=== PATIENT | male | born 1995 | race Caucasian/White ===

== ENCOUNTER 2020-06-05 23:38 | Inpatient (IN) ==
[2020-06-06] MEDS ORDERED: SODIUM CHLORIDE 0.9% 1000ML 1,000 ML IV ONE (00:02)
--- NOTE | 2020-06-06 00:08 | Emergency Department Note ---
Impression & Plan Acute appendicitis ED Provider Note Name: DORIAN RAMIREZ Age: 24 Sex: M Arrives Via: Walk-In Informant: Patient ED Provider: Shantanu Beavers MD Chief Complaint: Abdominal pain Impression: Acute Appendicitis Medical Decision Makin yr old male with no PMH arrives with 8 hours of worsening RLQ pain. Quite tender to palpation and CT a/p ordered. Labs returning with elevated WBC consistent with infection. Declines pain meds but given some IV fluids while a waiting CT. CT reveals acute appendicitis without perforation. Covid sent pre- op, and Mefoxin ordered after discussion with Dr Murrieta of Gen Surg. Will go to OR for further management. Stable throughout. Triage/Nursing Notes reviewed by Me Differentials:Appendicitis, testicular torsion, infections, diverticulitis, UTI, obstruction, mesenteric ischemia, aortic pathology, inflammatory bowel disease, renal colic, PUD, pancreatitis, biliary pathology, hernia, volvulus, constipation, as well as other pathologies. Vital Signs: reviewed and remarkable for no significant abnormalities Interventions: saline lock, nss bolus, mefoxin 2g iv Labs:Reviewed and remarkable for wbc elevation Imaging:[facility] Radiologist interpretation reviewed by me: ct a/p iv con acute non perforated appendicitis Consults:Dr Murrieta Gen Surg - will take to OR Plan: Disposition: OR Condition: Good History of Present Illness:24 yr old male arrives for evaluation of abdominal pain. Patient notes gradual onset of RLQ pain over the last 8 hours. 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 Notes increasing fatigue, some nausea, chills. Had normal BM this evening. Does recall some vague epigastric pain initially thus he had taken tums without improvement. No chemical exposures nor heavy lifting. Denies trauma. No fevers, vomiting, chest pain, sob, syncope, headache, neck pain, rashes, bleeding, bruising, leg swelling, calf pain, nor other symptoms. No previous abdominal issues. Nothing makes pain better, movement makes worse. ROS: See above HPI for pertinent positives & negatives. A total of 10 systems reviewed and were otherwise negative. Past Medical History:None Past Surgical History:Dental Family History:Healthy Social History:, no children, no etoh/drugs/tobacco, employed Home Medications:None Allergies:Codeine Vitals:Blood Pressure: 113/68, Pulse 80, RR 20, T 36.3C, O2 97% on RA Physical Exam: GENERAL: Patient is mildly uncomfortable appearing and in mild distress. EYES: No scleral icterus, unremarkable pupils. ENT: Mucous membranes moist, no nasal congestion. NECK: No masses appreciated, nomeningismus, trachea is midline. RESPIRATORY: No dyspnea. Clear to auscultation and equal bilaterally. No wheeze, no rhonchi. CARDIOVASCULAR: Regular rate and rhythm.No murmurs, rubs, gallops appreciated. GASTROINTESTINAL: RLQ TTP otherwise abdomen soft, non-tender, no peritonitis.Bowel sounds positive.No masses appreciated. BACK: No midline tenderness, no CVA tenderness EXTREMITIES: Normal motion all extremities, no cyanosis, no edema. NEUROLOGIC: Alert and oriented, no acute motor or sensory deficits, no focal weakness, cranial nerves grossly intact. SKIN: No rash, no jaundice, no diaphoresis. PSYCH: Appropriate GCS: 15 ED Course: Times/Reassessments: stable, declines pain meds Shantanu Beavers MD Past Med/Surg History Social History Smoking Status: Never smoker Preferred Language: Tajik Feels Safe at Home: Yes Allergies Allergies Allergy/AdvReac Type Severity Reaction Status Date / Time codeine Allergy Unknown Verified 06/06/20 00:02 Home Meds Home Medications Medication Instructions Recorded Confirmed No Known Home Medications 06/05/20 06/05/20 Results & Data (ED) Vital Signs Vital Signs - 24 hr 06/05/20 23:41 06/06/20 00:54 06/06/20 00:57 Temperature 36.3 C L Temperature Source Oral Pulse Rate 80 97 H Pulse Rate [Right Finger] 90 Pulse Rate from SpO2 Sensor Pulse Rhythm Regular Pulse Strength Normal Respiratory Rate 20 20 19 Respiratory Effort / Characteristics Non-Labored Spontaneous Respiratory Depth Normal Blood Pressure 113/68 136/75 Blood Pressure [Right Arm] 136/75 Blood Pressure Mean 83 95 Blood Pressure Mean [Right Arm] 95 Blood Pressure Position Sitting Pulse Oximetry 97 98 Oxygen Delivery Method Room Air Sepsis Recent Fever Within 48 Hours No Sepsis New/Unexplained Change in Mental Status N/A Sepsis Action Taken by Nursing No Action Required 06/06/20 02:16 06/06/20 02:30 06/06/20 03:01 Temperature Temperature Source Pulse Rate 99 H 91 H 96 H Pulse Rate [Right Finger] Pulse Rate from SpO2 Sensor 98 H 91 H 94 H Pulse Rhythm Pulse Strength Respiratory Rate 20 20 14 Respiratory Effort / Characteristics Respiratory Depth Blood Pressure 145/82 H 147/86 H 145/77 H Blood Pressure [Right Arm] Blood Pressure Mean 103 106 99 Blood Pressure Mean [Right Arm] Blood Pressure Position Pulse Oximetry 97 97 98 Oxygen Delivery Method Room Air Sepsis Recent Fever Within 48 Hours Sepsis New/Unexplained Change in Mental Status Sepsis Action Taken by Nursing Laboratory Data Result diagrams: 06/06/20 00:10 06/06/20 00:10 Lab Results 06/06/20 06/06/20 06/06/20 Range/Units 00:10 00:10 00:10 WBC 17.12 H (4.8-10.8) K/uL RBC 5.56 (4.7-6.1) M/uL Hgb 15.7 (14.0-18.0) g/dL POC Hgb (14.0-18.0) g/dl Hct 45.2 (42-52) % POC Hct (42-52) % MCV 81.3 (80-100) fL MCH 28.2 (25-34) pg MCHC 34.7 (32-36) g/dL RDW Std Deviation 38.0 (36.4-46.3) fL RDW Coeff of Lisha 12.8 (11.5-14.5) % Plt Count 244 (130-400) K/uL MPV 9.7 (7.4-10.4) fL Immature Gran % (Auto) 0.3 % Neut % (Auto) 82.1 % Lymph % (Auto) 11.9 % [place] % (Auto) 5.0 % Eos % (Auto) 0.5 % Baso % (Auto) 0.2 % Neut # (Auto) 14.08 H (1.4-6.5) K/uL Lymph # (Auto) 2.03 (1.2-3.4) K/uL [place] # (Auto) 0.85 H (0.11-0.59) K/uL Eos # (Auto) 0.08 (0-0.5) K/uL Baso # (Auto) 0.03 (0-0.2) K/uL Immature Gran # (Auto) 0.05 H (0.00-0.02) K/uL POC Sodium (135-144) mmol/L Sodium 139 (136-145) mmol/L POC Potassium (3.3-5.0) mmol/L Potassium 3.7 (3.5-5.1) mmol/L POC Chloride (101-112) mmol/L Chloride 107 (98-107) mmol/L Carbon Dioxide 25 (21-32) mmol/L POC Total CO2 (24-31) mmol/L Anion Gap 7.0 (3-11) POC Anion Gap (16-25) mmol/L POC BUN (7-18) mg/dl BUN 16 (7-18) mg/dl Creatinine 0.90 (0.6-1.4) mg/dl POC Creatinine (0.6-1.3) mg/dl Est Cr Clr Drug Dosing 192.7 ml/min Est GFR ( Amer) 137.1 Est GFR (Non-Af Amer) 118.3 BUN/Creatinine Ratio 18.0 (10-20) Glucose 159 H (70-99) mg/dl POC Glucose (other) (70-99) mg/dl Calcium 10.0 (8.5-10.1) mg/dl POC Ioniz Calcium Phan (1.12-1.32) mmol/l Total Bilirubin 1.0 (0.2-1) mg/dl Direct Bilirubin < 0.1 (0-0.2) mg/dl AST 34 (15-37) U/L ALT 73 (12-78) U/L Alkaline Phosphatase 61 (45-117) U/L Total Protein 7.4 (6.4-8.2) gm/dl Albumin 4.3 (3.4-5.0) gm/dl Lipase 101 (73-393) U/L Urine Color Yellow Urine Appearance Cloudy A (Clear) Urine pH >= 9.0 H (4.5-7.5) Ur Specific [place] 1.021 (1.000-1.030) Urine Protein Negative (Negative) Urine Glucose (UA) Negative (Negative) Urine Ketones Negative (Negative) Urine Blood Negative (Negative) Urine Nitrite Negative (Negative) Urine Bilirubin Negative (Negative) Urine Urobilinogen Negative (Negative) Ur Leukocyte Esterase Negative (Negative) Urine WBC (Auto) 1-5 (0-5) /hpf Urine RBC (Auto) 0-4 (0-4) /hpf U Hyaline Cast (Auto) 1-5 (0-5) /lpf U Epithel Cells (Auto) 5-10 H (0-5) /lpf Urine Bacteria (Auto) Negative (Negative) COVID-19 Eval Order SARS-CoV-2 (PCR) (Negative) Influenza Type A (PCR) (Neg) Influenza Type B (PCR) (Neg) RSV (RT-PCR) (Neg) 06/06/20 06/06/20 06/06/20 Range/Units 00:30 01:54 01:54 WBC (4.8-10.8) K/uL RBC (4.7-6.1) M/uL Hgb (14.0-18.0) g/dL POC Hgb 14.6 (14.0-18.0) g/dl Hct (42-52) % POC Hct 43 (42-52) % MCV (80-100) fL MCH (25-34) pg MCHC (32-36) g/dL RDW Std Deviation (36.4-46.3) fL RDW Coeff of Lisha (11.5-14.5) % Plt Count (130-400) K/uL MPV (7.4-10.4) fL Immature Gran % (Auto) % Neut % (Auto) % Lymph % (Auto) % [place] % (Auto) % Eos % (Auto) % Baso % (Auto) % Neut # (Auto) (1.4-6.5) K/uL Lymph # (Auto) (1.2-3.4) K/uL [place] # (Auto) (0.11-0.59) K/uL Eos # (Auto) (0-0.5) K/uL Baso # (Auto) (0-0.2) K/uL Immature Gran # (Auto) (0.00-0.02) K/uL POC Sodium 139 (135-144) mmol/L Sodium (136-145) mmol/L POC Potassium 3.8 (3.3-5.0) mmol/L Potassium (3.5-5.1) mmol/L POC Chloride 104 (101-112) mmol/L Chloride (98-107) mmol/L Carbon Dioxide (21-32) mmol/L POC Total CO2 27 (24-31) mmol/L Anion Gap (3-11) POC Anion Gap 13.0 L (16-25) mmol/L POC BUN 17 (7-18) mg/dl BUN (7-18) mg/dl Creatinine (0.6-1.4) mg/dl POC Creatinine 0.9 (0.6-1.3) mg/dl Est Cr Clr Drug Dosing ml/min Est GFR ( Amer) Est GFR (Non-Af Amer) BUN/Creatinine Ratio (10-20) Glucose (70-99) mg/dl POC Glucose (other) 158 H (70-99) mg/dl Calcium (8.5-10.1) mg/dl POC Ioniz Calcium Phan 1.21 (1.12-1.32) mmol/l Total Bilirubin (0.2-1) mg/dl Direct Bilirubin (0-0.2) mg/dl AST (15-37) U/L ALT (12-78) U/L Alkaline Phosphatase (45-117) U/L Total Protein (6.4-8.2) gm/dl Albumin (3.4-5.0) gm/dl Lipase (73-393) U/L Urine Color Urine Appearance (Clear) Urine pH (4.5-7.5) Ur Specific [place] (1.000-1.030) Urine Protein (Negative) Urine Glucose (UA) (Negative) Urine Ketones (Negative) Urine Blood (Negative) Urine Nitrite (Negative) Urine Bilirubin (Negative) Urine Urobilinogen (Negative) Ur Leukocyte Esterase (Negative) Urine WBC (Auto) (0-5) /hpf Urine RBC (Auto) (0-4) /hpf U Hyaline Cast (Auto) (0-5) /lpf U Epithel Cells (Auto) (0-5) /lpf Urine Bacteria (Auto) (Negative) COVID-19 Eval Order [facility]FluRsv at [facility] SARS-CoV-2 (PCR) NEGATIVE (Negative) Influenza Type A (PCR) Negative (Neg) Influenza Type B (PCR) Negative (Neg) RSV (RT-PCR) Negative (Neg) Administered Medications Discontinued Medications Sodium Chloride (Nss 1000ml) 1,000 mls @ 999 mls/hr IV .[id number] ONE Stop: 06/06/20 01:02 Last Infusion: 06/06/20 01:24 Dose: 0 mls/hr Documented by: [id number] Admin: 06/06/20 00:24 Dose: 999 mls/hr Documented by: [id number] Cefoxitin Sodium (Mefoxin) 2,000 mg in 60 mls @ 100 mls/hr IV NOW STA Stop: 06/06/20 02:15 Last Admin: 06/06/20 02:16 Dose: 100 mls/hr Documented by: [id number] Ioversol (Optiray 350 500ml) 125 ml IV ONCE ONE Stop: 06/06/20 01:02 Last Admin: 06/06/20 01:01 Dose: 109 ml Documented by: [id number] Discharge Plan Visit Data Chief Complaint: Abdominal Pain Stated Complaint: SHARP PAIN ON THE RIGHT SIDE ED Provider: Shantanu Beavers Discharge Problem: Acute appendicitis Patient Disposition: Admitted As Inpatient Discharge Instructions Interventions: ED Discharge Assessment Last Done: 06/06/20 03:32 Forms Stand Alone Forms: iTOK Prescriptions Prescriptions: No Action No Known Home Medications RF: 0 Referrals Referrals: PCP,NO [Primary Care Provider] - Discharge Problem: Acute appendicitis Qualifiers: Acute appendicitis type: with localized peritonitis Appendicitis gangrene presence: without gangrene Appendicitis perforation presence: without perforation Appendicitis abscess presence: without abscess Qualified Code(s): K35.30 - Acute appendicitis with localized peritonitis, without perforation or gangrene
[2020-06-06 00:23] LABS: Basophils # (auto) 0.03 K/uL (0-0.2); Basophils % (auto) 0.2 %; Eosinophils # (auto) 0.08 K/uL (0-0.5); Eosinophils % (auto) 0.5 %; Hematocrit (blood only) 45.2 % (42-52); Hemoglobin 15.7 g/dL (14.0-18.0); Immature Granulocytes # (auto) 0.05 K/uL (0.00-0.02); Immature Granulocytes % (auto) 0.3 %; Lymphocytes # (auto) 2.03 K/uL (1.2-3.4); Lymphocytes % (auto) 11.9 %; Mean Corpuscular Hemoglobin 28.2 pg (25-34); Mean Corpuscular Hgb Conc 34.7 g/dL (32-36); Mean Corpuscular Volume 81.3 fL (80-100); Mean Platelet Volume 9.7 fL (7.4-10.4); Monocytes # (auto) 0.85 K/uL (0.11-0.59); Neutrophils # (auto) 14.08 K/uL (1.4-6.5); Neutrophils % (auto) 82.1 %; Platelet Count 244 K/uL (130-400); RDW Coefficient of Variation 12.8 % (11.5-14.5); Red Blood Count 5.56 M/uL (4.7-6.1); White Blood Count 17.12 K/uL (4.8-10.8)
[2020-06-06 00:39] LABS: Appearance Urine Cloudy (Clear); Bacteria Urine Automated Negative (Negative); Bilirubin Urine Negative (Negative); Blood Urine Negative (Negative); Color Urine Yellow; Glucose Urine UA Negative (Negative); Ketones Urine Negative (Negative); Leukocyte Esterase Urine Negative (Negative); Nitrite Urine Negative (Negative); Protein Urine Negative (Negative); RBC Urine Automated 0-4 /hpf (0-4); Specific Gravity Urine 1.021 (1.000-1.030); Urobilinogen Urine Negative (Negative); pH Urine >= 9.0 (4.5-7.5)
[2020-06-06 00:42] LABS: Alanine Aminotransferase 73 U/L (12-78); Albumin Level 4.3 gm/dl (3.4-5.0); Aspartate Aminotransferase 34 U/L (15-37); Bilirubin Direct < 0.1 mg/dl (0-0.2); Blood Urea Nitrogen 16 mg/dl (7-18); Carbon Dioxide 25 mmol/L (21-32); Chloride 107 mmol/L (98-107); Creatinine Clr Calc Pharmacy 192.7 ml/min; Est GFR (African American) 137.1; Est GFR (Non-African American) 118.3; Glucose 159 mg/dl (70-99); Lipase 101 U/L (73-393); Potassium 3.7 mmol/L (3.5-5.1); Sodium 139 mmol/L (136-145)
[2020-06-06 00:45] LABS: Alkaline Phosphatase 61 U/L (45-117); Total Protein 7.4 gm/dl (6.4-8.2)
[2020-06-06 00:48] LABS: iSTAT Creatinine 0.9 mg/dl (0.6-1.3); iSTAT Hemoglobin 14.6 g/dl (14.0-18.0); iSTAT Ionized Calcium 1.21 mmol/l (1.12-1.32); iSTAT Potassium 3.8 mmol/L (3.3-5.0)
[2020-06-06] MEDS ORDERED: OPTIRAY 350 500ml IV ONE (01:01)
[2020-06-06] MEDS ORDERED: cefOXitin 2,000 MG/60 ML BAG IV STA (01:40)
--- NOTE | 2020-06-06 02:21 | History & Physical Bridge Note ---
Date of Service June 06, 2020 History & Physical Bridge Note I have examined the patient, reviewed the History & Physical and in the interval since the performance of the History & Physical I have noted the following changes of clinical significance: no changes noted
--- NOTE | 2020-06-06 02:21 | Surgery Consultation ---
Date of Consultation June 06, 2020 Assessment & Plan (1) Acute appendicitis: pt is a 24 year-old male who presents to ER with 8 hours history RLQ pain, IMP: acute appendicitis, Plan, I recommend to do laparoscopic appendectomy, possible open, D/W benefits, risks and alternatives of the surgery, the risks - infection, bleeding, abscess, injury bowel, incisional hernia, pt and his understood, they agree with the surgery, I answered all questions, pre-op antibiotic, Present on Admission?: Yes History of Present Illness History of Present Illness CC: abdominal pain, History of Present Illness: 24 yr old male arrives for evaluation of abdominal pain. Patient notes gradual onset of RLQ pain over the last 8 hours. 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 Notes increasing fatigue, some nausea, chills. Had normal BM this evening. Does recall some vague epigastric pain initially thus he had taken tums without improvement. No chemical exposures nor heavy lifting. Denies trauma. No fevers, vomiting, chest pain, sob, syncope, headache, neck pain, rashes, bleeding, bruising, leg swelling, calf pain, nor other symptoms. No previous abdominal issues. Nothing makes pain better, movement makes worse. I ( Clint Murrieta mD ) got a call for consult acute appendicitis, I reviewed pt's H/P, labs, CT with pt and hiswife, pt is still have RLQ pain, ROS: See above HPI for pertinent positives & negatives. A total of 10 systems reviewed and were otherwise negative. Past Medical History: None Past Surgical History: Dental Family History: Healthy Social History: , no children, no etoh/drugs/tobacco, employed Home Medications: None Allergies: Codeine Vitals: Blood Pressure: 113/68, Pulse 80, RR 20, T 36.3C, O2 97% on RA Allergies Allergy/AdvReac Type Severity Reaction Status Date / Time codeine Allergy Unknown Verified 06/06/20 00:02 Home Medications Medication Instructions Recorded Confirmed Type No Known Home Medications 06/05/20 06/05/20 History Patient History Social History Smoking Status: Never smoker Preferred Language: Senegalese Feels Safe at Home: Yes Review of Systems Review of Systems: All systems reviewed & are unremarkable except as noted in HPI & below Constitutional: as per Subjective / HPI obesity Eyes: as per Subjective / HPI Ear, Nose, Mouth, Throat: as per Subjective / HPI Respiratory: as per Subjective / HPI Cardiovascular: as per Subjective / HPI Gastrointestinal: as per Subjective / HPI Genitourinary: + as per Subjective / HPI Musculoskeletal: as per Subjective / HPI Integumentary: as per Subjective / HPI Neurologic: as per Subjective / HPI Psychiatric: as per Subjective / HPI Endocrine: as per Subjective / HPI Hematologic / Lymphatic: as per Subjective / HPI Allergy / Immunological: as per Subjective / HPI Physical Exam Constitutional: WD/WN, vitals as above well developed and well nourished Eyes: PERRL, conjunctivae normal, anicteric sclerae ENMT: external ear and nose normal, oropharynx normal Neck: trachea midline, no thyromegaly Respiratory: normal respiratory effort, lungs clear to auscultation Cardiovascular: RRR, no murmur, no edema Rate/Rhythm: regular rate and regular rhythm Gastrointestinal (Abdomen): Percussion/Palpation: abdomen soft tenderness at RLQ, no rebound pain, no distend, BS + Musculoskeletal: no cyanosis or clubbing, extremities motor strength 5/5 Skin: no rashes, warm and dry Neurologic: awake Psychiatric: Orientation: alert and oriented x 3 Results & Data ([facility]) Vital Signs (Past 12 Hours) Vital Signs Temp Pulse Pulse Resp BP BP Pulse Ox 06/06/20 00:57 90 19 136/75 98 06/05/20 23:41 36.3 C L 80 20 113/68 97 Laboratory Results Abnormal lab results 06/06/20 06/06/20 06/06/20 Range/Units 00:10 00:10 00:10 WBC 17.12 H (4.8-10.8) K/uL Neut # (Auto) 14.08 H (1.4-6.5) K/uL [place] # (Auto) 0.85 H (0.11-0.59) K/uL Immature Gran # (Auto) 0.05 H (0.00-0.02) K/uL POC Anion Gap (16-25) mmol/L Glucose 159 H (70-99) mg/dl POC Glucose (other) (70-99) mg/dl Urine Appearance Cloudy A (Clear) Urine pH >= 9.0 H (4.5-7.5) U Epithel Cells (Auto) 5-10 H (0-5) /lpf 06/06/20 Range/Units 00:30 WBC (4.8-10.8) K/uL Neut # (Auto) (1.4-6.5) K/uL [place] # (Auto) (0.11-0.59) K/uL Immature Gran # (Auto) (0.00-0.02) K/uL POC Anion Gap 13.0 L (16-25) mmol/L Glucose (70-99) mg/dl POC Glucose (other) 158 H (70-99) mg/dl Urine Appearance (Clear) Urine pH (4.5-7.5) U Epithel Cells (Auto) (0-5) /lpf Diagnostic Findings CT scan- acute appendicitis, (1) Acute appendicitis Acute appendicitis type: with localized peritonitis Appendicitis abscess presence: without abscess Appendicitis gangrene presence: without gangrene Appendicitis perforation presence: without perforation Qualified Code(s): K35.30 - Acute appendicitis with localized peritonitis, without perforation or gangrene
[2020-06-06 02:40] LABS: Influenza A virus by PCR Negative (Neg); Influenza B virus by PCR Negative (Neg); RSV by PCR Negative (Neg); SARS CoV2 RNA(COVID-19) InHosp NEGATIVE (Negative)
[2020-06-06] MEDS ORDERED: LIDOCAINE HCL 1% 20 ML VIAL ONE (02:45)
[2020-06-06] MEDS ORDERED: BUPIVACAINE 0.5 % 5 MG/1 ML MPF 30ML VIAL ONE (02:45)
[2020-06-06] MEDS ORDERED: BACITRACIN OINT 15 GM TUBE ONE (02:45)
[2020-06-06] MEDS ORDERED: MIDAZOLAM HCL 1 MG/ML 2ML VIAL ONE (03:39)
[2020-06-06] MEDS ORDERED: fentaNYL citrate 100 MCG/2 ML VIAL ONE (03:40)
[2020-06-06] MEDS ORDERED: PROPOFOL IV EMULSION 10 MG/ML 20 ML VIAL IV ONE ×3 (03:40→03:45)
--- NOTE | 2020-06-06 03:51 | Anesthesiology Consultation ---
Date of Service June 06, 2020 Assessment & Plan Chart Review Chart Review: Acceptable Risk for Surgery Consults Requested none Proposed Anesthesia Risk / Benefits Reviewed With: PT / POA / Parent / Guardian, Accepts Plan and Informed Consent Obtained History Surgery Operation Date: 06/06/20 03:30 Proposed Procedures p Laparoscopic Appendectomy - Clint Murrieta MD Height/Weight Height: 6 ft 3 in Weight: 144.7 kg Allergies Allergy/AdvReac Type Severity Reaction Status Date / Time codeine Allergy Unknown Verified 06/06/20 00:02 Medications Home Medications Medication Instructions Recorded Confirmed Last Taken No Known Home Medications 06/05/20 06/05/20 Unknown NPO Date Last Intake of Fluids: 06/06/20 Time Last Intake of Fluids: 20:30 Date Last Intake of Solids: 06/06/20 Time Last Intake of Solids: 19:30 Social History Smoking Status: Never smoker Physical Exam Vital Signs Last Vital Signs Temp 36.3 C L 06/05/20 23:41 Pulse 96 H 06/06/20 03:01 Resp 14 06/06/20 03:01 BP 145/77 H 06/06/20 03:01 Pulse Ox 98 06/06/20 03:01 Testing Laboratory Results 06/06/20 00:10 06/06/20 00:10 Urine Color Yellow 06/06/20 00:10 Urine Appearance Cloudy (Clear) A 06/06/20 00:10 Urine pH >= 9.0 (4.5-7.5) H 06/06/20 00:10 Ur Specific [place] 1.021 (1.000-1.030) 06/06/20 00:10 Urine Protein Negative (Negative) 06/06/20 00:10 Urine Glucose (UA) Negative (Negative) 06/06/20 00:10 Urine Ketones Negative (Negative) 06/06/20 00:10 Urine Nitrite Negative (Negative) 06/06/20 00:10 Ur Leukocyte Esterase Negative (Negative) 06/06/20 00:10 Urine WBC (Auto) 1-5 /hpf (0-5) 06/06/20 00:10 Urine RBC (Auto) 0-4 /hpf (0-4) 06/06/20 00:10 U Hyaline Cast (Auto) 1-5 /lpf (0-5) 06/06/20 00:10 U Epithel Cells (Auto) 5-10 /lpf (0-5) H 06/06/20 00:10 Urine Bacteria (Auto) Negative (Negative) 06/06/20 00:10 06/06/20 00:30 POC Glucose (other) 158 H
[2020-06-06] MEDS ORDERED: ePHEDrine sulfate 50 MG/ML AMP IV PRN ×3 (03:52→04:47)
[2020-06-06] MEDS ORDERED: HYDROmorphone INJ 2 MG/ML SYR/VIAL IV PRN ×3 (03:52→04:47)
[2020-06-06] MEDS ORDERED: fentaNYL citrate 100 MCG/2 ML VIAL IV PRN ×3 (03:52→04:47)
[2020-06-06] MEDS ORDERED: ATROPINE SULFATE 0.1 MG/ML 10ML SYR IV PRN ×3 (03:52→04:44)
[2020-06-06] MEDS ORDERED: ONDANSETRON INJ 2 MG/ML 2 ML VIAL IV PRN ×4 (03:52→09:14)
[2020-06-06] MEDS ORDERED: PROMETHAZINE HCL 12.5 MG in SODIUM CHLORIDE 0.9% 50 ML IV PRN ×3 (03:52→04:43)
[2020-06-06] MEDS ORDERED: METOCLOPRAMIDE HCL INJ 5 MG/ML 2 ML VIAL IV PRN ×3 (03:52→04:43)
[2020-06-06] MEDS ORDERED: ROCURONIUM BROMIDE 10 MG/ML 5 ML VIAL IV ONE (04:18)
[2020-06-06] MEDS ORDERED: SUCCINYLCHOLINE CHLORIDE 20 MG/ML 10 ML VIAL IV ONE (04:19)
[2020-06-06] MEDS ORDERED: ONDANSETRON INJ 2 MG/ML 2 ML VIAL ONE ×2 (04:21→04:26)
[2020-06-06] MEDS ORDERED: NEOSTIGMINE METHYLSULFATE 5 MG/5 ML SYR ONE (04:21)
[2020-06-06] MEDS ORDERED: GLYCOPYRROLATE 0.2 MG/ML VIAL ONE (04:21)
--- NOTE | 2020-06-06 04:57 | Post Operative Brief Note ---
Immediate Post Op Note v1 Date of Surgery June 06, 2020 Pre & Post Diagnosis Operation Date: 06/06/20 03:30 Pre-Op Diagnosis: Acute appendicitis Post-Op Diagnosis: Acute appendicitis I identified the patient and participated in the time-out.: Yes Procedure Operation Date: 06/06/20 03:30 Actual Procedures p Laparoscopic Appendectomy - Clint Murrieta MD Surgeon Clint Murrieta MD Home Care Nurse surgical endoscopist Estimated Blood Loss 5 Findings Consistent with Post-Op Diagnosis acute appendicitis Fluids 1000ml Specimens appendix Anesthesia Type General Complications none Disposition Accompanied Patient To Recovery: Yes Disposition: Recovery Room Overlapping Procedure I was immediately available: during the entire case.
[2020-06-06] MEDS ORDERED: oxyCODONE/ACETAMINOPHEN 5mg/325mg TAB PO PRN (06:13)
[2020-06-06] MEDS ORDERED: HYDROmorphone INJ 1 MG/ML SYRINGE IV PRN (06:13)
[2020-06-06] MEDS: LACTATED RINGER'S 1,000 ML IV SCH ×2 (06:33→19:42)
--- NOTE | 2020-06-06 06:52 | Anesthesiology Progress Note ---
Date of Service June 06, 2020 Anesthesia Post Procedure Vital Signs Vital Signs: Temp Pulse Pulse Resp BP BP BP 06/06/20 06:35 36.8 C 88 18 137/75 06/06/20 06:00 36.4 C L 67 15 159/80 H 06/06/20 05:39 36.7 C 72 18 147/71 H 06/06/20 05:23 70 16 147/73 H 06/06/20 05:09 37.1 C 77 16 161/74 H 06/06/20 03:01 96 H 14 145/77 H 06/06/20 02:30 91 H 20 147/86 H 06/06/20 02:16 99 H 20 145/82 H 06/06/20 00:57 90 19 136/75 06/06/20 00:54 97 H 20 136/75 06/05/20 23:41 36.3 C L 80 20 113/68 Pulse Ox 06/06/20 06:35 95 06/06/20 06:00 93 06/06/20 05:39 92 06/06/20 05:23 92 06/06/20 05:09 92 06/06/20 03:01 98 06/06/20 02:30 97 06/06/20 02:16 97 06/06/20 00:57 98 06/06/20 00:54 06/05/20 23:41 97 Pain Intensity Right Lower Abdomen: Pain Intensity: 6 Abdomen: Pain Intensity: 2 Transfer of Care Handoff Completed per policy Notes Mental Status: alert / awake / arousable and participated in evaluation Patient Amnestic to Procedure: Yes Nausea / Vomiting: adequately controlled Pain: adequately controlled Airway Patency, RR, SpO2: stable & adequate BP & HR: stable & adequate Hydration State: stable & adequate Anesthetic Complications: no major complications apparent
[2020-06-06 08:00] LABS: Basophils # (auto) 0.01 K/uL (0-0.2); Basophils % (auto) 0.1 %; Hematocrit (blood only) 43.7 % (42-52); Immature Granulocytes # (auto) 0.06 K/uL (0.00-0.02); Immature Granulocytes % (auto) 0.3 %; Lymphocytes # (auto) 1.19 K/uL (1.2-3.4); Lymphocytes % (auto) 6.2 %; Mean Corpuscular Hemoglobin 28.2 pg (25-34); Mean Corpuscular Hgb Conc 34.3 g/dL (32-36); Mean Corpuscular Volume 82.1 fL (80-100); Mean Platelet Volume 10.1 fL (7.4-10.4); Monocytes # (auto) 1.18 K/uL (0.11-0.59); Monocytes % (auto) 6.2 %; Neutrophils # (auto) 16.69 K/uL (1.4-6.5); Neutrophils % (auto) 87.2 %; Platelet Count 236 K/uL (130-400); RDW Coefficient of Variation 12.8 % (11.5-14.5); RDW Standard Deviation 38.5 fL (36.4-46.3); Red Blood Count 5.32 M/uL (4.7-6.1); White Blood Count 19.13 K/uL (4.8-10.8)
--- NOTE | 2020-06-06 08:17 | CT Scan Report ---
CT abd pelvis IV con only CLINICAL HISTORY: Right lower quadrant abdominal pain COMPARISON STUDY: None. TECHNIQUE: The patient was scanned in a dynamic helical fashion during intravenous administration of 119 cc of Optiray 320 A dose lowering technique was utilized adhering to the principles of ALARA. CT DOSE: 1679.02 mGy.cm FINDINGS: Lower chest: The heart is normal in size and configuration, without pericardial effusion. The lung ba ses and pleural spaces are clear. Liver: There is hepatic steatosis. Hepatic and portal veins appear patent. Gallbladder: Unremarkable. Spleen: Mildly enlarged measuring 13.7 cm Pancreas: Unremarkable. Adrenal glands: There is a 21 mm left adrenal adenoma Kidneys: There is symmetric renal cortical enhancement. The kidneys are normal in size without hydron ephrosis. Bowel: There are no transition zones to indicate bowel obstruction. There is a dilated appendix with periappendiceal stranding. The findings are indicative of acute appendicitis. The appendix measures 1 3 mm in diameter. There is colonic diverticulosis. There is infiltration of the perisigmoid fat consi stent with acute diverticulitis. Peritoneum: There is no intraperitoneal free air or abdominal ascites. Vasculature: The abdominal aorta is normal in course and caliber. Adenopathy: None. Pelvic viscera: The bladder, and pelvic viscera are unremarkable. Skeletal structures: No destructive osseous lesions are seen. IMPRESSION: 1. Dilated fluid-filled appendix with periappendiceal stranding. The findings are indicative of acute appendicitis 2. Sigmoid diverticulitis. This finding was not described in the preliminary report, and will therefo re be called to the floor. ACT 112: Negative or not required by law. Electronically signed by: Tirso Lainez M.D. 06/06/2020 8:16 AM
[2020-06-06] MEDS ORDERED: ACETAMINOPHEN 325 MG TAB PO PRN (09:13)
[2020-06-06] MEDS ORDERED: IBUPROFEN 600 MG TAB PO PRN (09:13)
--- NOTE | 2020-06-06 09:21 | Surgery Progress Note ---
Date of Service June 06, 2020 Assessment & Plan (1) Acute appendicitis: POD # 0 s/p laparoscopic appendectomy (6 hours postop) -afebrile, vitals stable - minimal postop pain, soreness at incisions - no n/v - leukocytosis of 19K (17k preop) Plan: Continue IV Cefoxitin Continue PO Percocet and IV Dilaudid prn pain, will add PO Tylenol and Ibuprofen as needed Clear liquids IV fluids bladder scan as needed repeat am cbc Likely home tomorrow Dr. Murrieta was present during my examination and agrees with above. Admission and Anticipated Discharge Date Admission Date: June 06, 2020 Subjective feeling better, soreness at incision sites has not urinated since surgery no n/v Physical Exam Constitutional: WD/WN, vitals as above + obese Respiratory: normal respiratory effort; no respiratory distress and no labored breathing Gastrointestinal (Abdomen): Inspection/Auscultation: abdomen normal to inspection and + abdominal surgical incision (covered with dressings, dry/intact); abdomen not distended and + abnormal bowel sounds (hypoactive) Percussion/Palpation: + abdomen tender (very mild at incision sites) and abdomen soft; no guarding and abdomen not rigid Skin: no rashes, warm and dry Psychiatric: A+Ox3, euthymic affect Results & Data ([facility]) Vital Signs (Past 12 Hours) Vital Signs Temp Pulse Pulse Resp BP BP BP 06/06/20 08:00 36.7 C 91 H 16 143/77 H 06/06/20 07:01 36.6 C 89 16 149/82 H 06/06/20 06:35 36.8 C 88 18 137/75 06/06/20 06:00 36.4 C L 67 15 159/80 H 06/06/20 05:39 36.7 C 72 18 147/71 H 06/06/20 05:23 70 16 147/73 H 06/06/20 05:09 37.1 C 77 16 161/74 H 06/06/20 03:01 96 H 14 145/77 H 06/06/20 02:30 91 H 20 147/86 H 06/06/20 02:16 99 H 20 145/82 H 06/06/20 00:57 90 19 136/75 06/06/20 00:54 97 H 20 136/75 06/05/20 23:41 36.3 C L 80 20 113/68 Pulse Ox 06/06/20 08:00 97 06/06/20 07:01 97 06/06/20 06:35 95 06/06/20 06:00 93 06/06/20 05:39 92 06/06/20 05:23 92 06/06/20 05:09 92 06/06/20 03:01 98 06/06/20 02:30 97 06/06/20 02:16 97 06/06/20 00:57 98 06/06/20 00:54 06/05/20 23:41 97 Laboratory Results 06/06/20 06/06/20 06/06/20 Range/Units 07:11 01:54 01:54 WBC 19.13 H (4.8-10.8) K/uL RBC 5.32 (4.7-6.1) M/uL Hgb 15.0 (14.0-18.0) g/dL POC Hgb (14.0-18.0) g/dl Hct 43.7 (42-52) % POC Hct (42-52) % MCV 82.1 (80-100) fL MCH 28.2 (25-34) pg MCHC 34.3 (32-36) g/dL RDW Std Deviation 38.5 (36.4-46.3) fL RDW Coeff of Lisha 12.8 (11.5-14.5) % Plt Count 236 (130-400) K/uL MPV 10.1 (7.4-10.4) fL Immature Gran % (Auto) 0.3 % Neut % (Auto) 87.2 % Lymph % (Auto) 6.2 % [place] % (Auto) 6.2 % Eos % (Auto) 0.0 % Baso % (Auto) 0.1 % Neut # (Auto) 16.69 H (1.4-6.5) K/uL Lymph # (Auto) 1.19 L (1.2-3.4) K/uL [place] # (Auto) 1.18 H (0.11-0.59) K/uL Eos # (Auto) 0.00 (0-0.5) K/uL Baso # (Auto) 0.01 (0-0.2) K/uL Immature Gran # (Auto) 0.06 H (0.00-0.02) K/uL POC Sodium (135-144) mmol/L Sodium (136-145) mmol/L POC Potassium (3.3-5.0) mmol/L Potassium (3.5-5.1) mmol/L POC Chloride (101-112) mmol/L Chloride (98-107) mmol/L Carbon Dioxide (21-32) mmol/L POC Total CO2 (24-31) mmol/L Anion Gap (3-11) POC Anion Gap (16-25) mmol/L POC BUN (7-18) mg/dl BUN (7-18) mg/dl Creatinine (0.6-1.4) mg/dl POC Creatinine (0.6-1.3) mg/dl Est Cr Clr Drug Dosing ml/min Est GFR ( Amer) Est GFR (Non-Af Amer) BUN/Creatinine Ratio (10-20) Glucose (70-99) mg/dl POC Glucose (other) (70-99) mg/dl Calcium (8.5-10.1) mg/dl POC Ioniz Calcium Phan (1.12-1.32) mmol/l Total Bilirubin (0.2-1) mg/dl Direct Bilirubin (0-0.2) mg/dl AST (15-37) U/L ALT (12-78) U/L Alkaline Phosphatase (45-117) U/L Total Protein (6.4-8.2) gm/dl Albumin (3.4-5.0) gm/dl Lipase (73-393) U/L Urine Color Urine Appearance (Clear) Urine pH (4.5-7.5) Ur Specific [place] (1.000-1.030) Urine Protein (Negative) Urine Glucose (UA) (Negative) Urine Ketones (Negative) Urine Blood (Negative) Urine Nitrite (Negative) Urine Bilirubin (Negative) Urine Urobilinogen (Negative) Ur Leukocyte Esterase (Negative) Urine WBC (Auto) (0-5) /hpf Urine RBC (Auto) (0-4) /hpf U Hyaline Cast (Auto) (0-5) /lpf U Epithel Cells (Auto) (0-5) /lpf Urine Bacteria (Auto) (Negative) COVID-19 Eval Order CovFluRsv at [facility] SARS-CoV-2 (PCR) NEGATIVE (Negative) Influenza Type A (PCR) Negative (Neg) Influenza Type B (PCR) Negative (Neg) RSV (RT-PCR) Negative (Neg) 06/06/20 06/06/20 06/06/20 Range/Units 00:30 00:10 00:10 WBC (4.8-10.8) K/uL RBC (4.7-6.1) M/uL Hgb (14.0-18.0) g/dL POC Hgb 14.6 (14.0-18.0) g/dl Hct (42-52) % POC Hct 43 (42-52) % MCV (80-100) fL MCH (25-34) pg MCHC (32-36) g/dL RDW Std Deviation (36.4-46.3) fL RDW Coeff of Lisha (11.5-14.5) % Plt Count (130-400) K/uL MPV (7.4-10.4) fL Immature Gran % (Auto) % Neut % (Auto) % Lymph % (Auto) % [place] % (Auto) % Eos % (Auto) % Baso % (Auto) % Neut # (Auto) (1.4-6.5) K/uL Lymph # (Auto) (1.2-3.4) K/uL [place] # (Auto) (0.11-0.59) K/uL Eos # (Auto) (0-0.5) K/uL Baso # (Auto) (0-0.2) K/uL Immature Gran # (Auto) (0.00-0.02) K/uL POC Sodium 139 (135-144) mmol/L Sodium 139 (136-145) mmol/L POC Potassium 3.8 (3.3-5.0) mmol/L Potassium 3.7 (3.5-5.1) mmol/L POC Chloride 104 (101-112) mmol/L Chloride 107 (98-107) mmol/L Carbon Dioxide 25 (21-32) mmol/L POC Total CO2 27 (24-31) mmol/L Anion Gap 7.0 (3-11) POC Anion Gap 13.0 L (16-25) mmol/L POC BUN 17 (7-18) mg/dl BUN 16 (7-18) mg/dl Creatinine 0.90 (0.6-1.4) mg/dl POC Creatinine 0.9 (0.6-1.3) mg/dl Est Cr Clr Drug Dosing 192.7 ml/min Est GFR ( Amer) 137.1 Est GFR (Non-Af Amer) 118.3 BUN/Creatinine Ratio 18.0 (10-20) Glucose 159 H (70-99) mg/dl POC Glucose (other) 158 H (70-99) mg/dl Calcium 10.0 (8.5-10.1) mg/dl POC Ioniz Calcium Phan 1.21 (1.12-1.32) mmol/l Total Bilirubin 1.0 (0.2-1) mg/dl Direct Bilirubin < 0.1 (0-0.2) mg/dl AST 34 (15-37) U/L ALT 73 (12-78) U/L Alkaline Phosphatase 61 (45-117) U/L Total Protein 7.4 (6.4-8.2) gm/dl Albumin 4.3 (3.4-5.0) gm/dl Lipase 101 (73-393) U/L Urine Color Yellow Urine Appearance Cloudy A (Clear) Urine pH >= 9.0 H (4.5-7.5) Ur Specific [place] 1.021 (1.000-1.030) Urine Protein Negative (Negative) Urine Glucose (UA) Negative (Negative) Urine Ketones Negative (Negative) Urine Blood Negative (Negative) Urine Nitrite Negative (Negative) Urine Bilirubin Negative (Negative) Urine Urobilinogen Negative (Negative) Ur Leukocyte Esterase Negative (Negative) Urine WBC (Auto) 1-5 (0-5) /hpf Urine RBC (Auto) 0-4 (0-4) /hpf U Hyaline Cast (Auto) 1-5 (0-5) /lpf U Epithel Cells (Auto) 5-10 H (0-5) /lpf Urine Bacteria (Auto) Negative (Negative) COVID-19 Eval Order SARS-CoV-2 (PCR) (Negative) Influenza Type A (PCR) (Neg) Influenza Type B (PCR) (Neg) RSV (RT-PCR) (Neg) 06/06/20 Range/Units 00:10 WBC 17.12 H (4.8-10.8) K/uL RBC 5.56 (4.7-6.1) M/uL Hgb 15.7 (14.0-18.0) g/dL POC Hgb (14.0-18.0) g/dl Hct 45.2 (42-52) % POC Hct (42-52) % MCV 81.3 (80-100) fL MCH 28.2 (25-34) pg MCHC 34.7 (32-36) g/dL RDW Std Deviation 38.0 (36.4-46.3) fL RDW Coeff of Lisha 12.8 (11.5-14.5) % Plt Count 244 (130-400) K/uL MPV 9.7 (7.4-10.4) fL Immature Gran % (Auto) 0.3 % Neut % (Auto) 82.1 % Lymph % (Auto) 11.9 % [place] % (Auto) 5.0 % Eos % (Auto) 0.5 % Baso % (Auto) 0.2 % Neut # (Auto) 14.08 H (1.4-6.5) K/uL Lymph # (Auto) 2.03 (1.2-3.4) K/uL [place] # (Auto) 0.85 H (0.11-0.59) K/uL Eos # (Auto) 0.08 (0-0.5) K/uL Baso # (Auto) 0.03 (0-0.2) K/uL Immature Gran # (Auto) 0.05 H (0.00-0.02) K/uL POC Sodium (135-144) mmol/L Sodium (136-145) mmol/L POC Potassium (3.3-5.0) mmol/L Potassium (3.5-5.1) mmol/L POC Chloride (101-112) mmol/L Chloride (98-107) mmol/L Carbon Dioxide (21-32) mmol/L POC Total CO2 (24-31) mmol/L Anion Gap (3-11) POC Anion Gap (16-25) mmol/L POC BUN (7-18) mg/dl BUN (7-18) mg/dl Creatinine (0.6-1.4) mg/dl POC Creatinine (0.6-1.3) mg/dl Est Cr Clr Drug Dosing ml/min Est GFR ( Amer) Est GFR (Non-Af Amer) BUN/Creatinine Ratio (10-20) Glucose (70-99) mg/dl POC Glucose (other) (70-99) mg/dl Calcium (8.5-10.1) mg/dl POC Ioniz Calcium Phan (1.12-1.32) mmol/l Total Bilirubin (0.2-1) mg/dl Direct Bilirubin (0-0.2) mg/dl AST (15-37) U/L ALT (12-78) U/L Alkaline Phosphatase (45-117) U/L Total Protein (6.4-8.2) gm/dl Albumin (3.4-5.0) gm/dl Lipase (73-393) U/L Urine Color Urine Appearance (Clear) Urine pH (4.5-7.5) Ur Specific [place] (1.000-1.030) Urine Protein (Negative) Urine Glucose (UA) (Negative) Urine Ketones (Negative) Urine Blood (Negative) Urine Nitrite (Negative) Urine Bilirubin (Negative) Urine Urobilinogen (Negative) Ur Leukocyte Esterase (Negative) Urine WBC (Auto) (0-5) /hpf Urine RBC (Auto) (0-4) /hpf U Hyaline Cast (Auto) (0-5) /lpf U Epithel Cells (Auto) (0-5) /lpf Urine Bacteria (Auto) (Negative) COVID-19 Eval Order SARS-CoV-2 (PCR) (Negative) Influenza Type A (PCR) (Neg) Influenza Type B (PCR) (Neg) RSV (RT-PCR) (Neg) (1) Acute appendicitis Acute appendicitis type: with localized peritonitis Appendicitis abscess presence: without abscess Appendicitis gangrene presence: without gangrene Appendicitis perforation presence: without perforation Qualified Code(s): K35.30 - Acute appendicitis with localized peritonitis, without perforation or gangrene
--- NOTE | 2020-06-06 10:36 | Operative Report (OR) ---
DATE OF OPERATION: 06/06/2020 PREOPERATIVE DIAGNOSIS: Acute appendicitis. POSTOPERATIVE DIAGNOSIS: Acute appendicitis. OPERATION: Laparoscopic appendectomy. SURGEON: Clint Murrieta MD. ANESTHESIA: General. ESTIMATED BLOOD LOSS: About 5 mL. FINDINGS: Acute appendicitis. COMPLICATIONS: None. INDICATIONS FOR THE PROCEDURE: This is a 24-year-old gentleman who presented to ED with a 6-hour history of right lower quadrant pain. The patient had a CT scan diagnosis of acute appendicitis. I recommended to do the laparoscopic appendectomy, possible open. I did talk to the patient about the benefit, the risk, alternate procedure. I indicated the risks may include but not limited to such as bleeding, infection, abscess, injury to the bowel, incisional hernia, bowel obstruction. The patient understands. He signed informed consent and I answered all questions. DETAILS OF PROCEDURE: After we identified the patient and verified the procedure, we brought the patient to the OR, put the patient in the supine position. The patient received SCD on bilateral legs to prevent DVT. Also, patient received 2 grams of cefoxitin IV for prophylactic antibiotic. The patient received general anesthesia without difficulty. The abdomen was prepped and draped in routine sterile fashion. After timeout, I injected local anesthesia by using 1% lidocaine mixed with 0.5% Marcaine just above the umbilicus. Then, I made a small incision just above the umbilicus, opened fascia and opened peritoneum under direct vision, put a Navjot trocar in, connected to CO2 to create pneumoperitoneum, flow rate at 6 liters per minute, pressure not more than 14 mmHg. Once we got a nice pneumoperitoneum, we put the camera in, looked around the abdomen, it shows normal finding on the small bowel, large bowel, but the appendix showed a slightly large inflammation, confirmed diagnosis of acute appendicitis. Also has minimal pelvic fluid. We suctioned out once we put another two 5 mm trocars in the left lower quadrant area. Once all trocars in, again we suctioned the small pelvic area fluid and again we found the patient had acute appendicitis, enlarged with inflammation on the appendix. Then I used harmonic to take down appendiceal, rechecked, no active bleeding. Then we chose a 45 mm Endo-KRISTIE staple for transection on the base of the appendix, rechecked the staple line intact. No leak, no active bleeding. Then we removed the appendix through the catch bag. Then we reinserted Navjot trocar in, connected to CO2 to create pneumoperitoneum, again looked around the abdomen, no active bleeding, no leak from the staple line. Then we removed all trocars under direct vision. No active bleeding from the trocar sites. The pneumoperitoneum was released. Then I closed the umbilical incision, fascial layer by using 0 Vicryl [id number] x2, closed subcutaneous layer by using 2-0 Vicryl interruptedly, closed skin by using 4-0 Vicryl continuous running, closed another two 5 mm trocar site skin only by using 4-0 Vicryl. Then, we put the dressing on. The patient tolerated the procedure well. All instrument, needle and sponge count were correct x2 at the end of the case. The patient was transferred to recovery room in stable condition. After the procedure, I did talk to the patient and the patient's family member about the OR finding and the procedure we did, they understand. I attest to the content of the Intraoperative Record and any orders documented therein. Any exception s are noted below.
[2020-06-07 07:30] LABS: Basophils # (auto) 0.03 K/uL (0-0.2); Basophils % (auto) 0.3 %; Eosinophils # (auto) 0.16 K/uL (0-0.5); Eosinophils % (auto) 1.6 %; Hemoglobin 14.5 g/dL (14.0-18.0); Immature Granulocytes # (auto) 0.02 K/uL (0.00-0.02); Immature Granulocytes % (auto) 0.2 %; Lymphocytes # (auto) 2.54 K/uL (1.2-3.4); Lymphocytes % (auto) 25.2 %; Mean Corpuscular Hemoglobin 27.9 pg (25-34); Mean Corpuscular Hgb Conc 33.7 g/dL (32-36); Mean Corpuscular Volume 82.9 fL (80-100); Monocytes # (auto) 0.86 K/uL (0.11-0.59); Monocytes % (auto) 8.5 %; Neutrophils # (auto) 6.48 K/uL (1.4-6.5); Neutrophils % (auto) 64.2 %; Platelet Count 224 K/uL (130-400); RDW Standard Deviation 39.2 fL (36.4-46.3); Red Blood Count 5.19 M/uL (4.7-6.1); White Blood Count 10.09 K/uL (4.8-10.8)
--- NOTE | 2020-06-07 07:39 | Discharge Summary ---
Date of Service June 07, 2020 Admission HPI Per Admitting Provider History of Present Illness: 24 yr old male arrives for evaluation of abdominal pain. Patient notes gradual onset of RLQ pain over the last 8 hours. 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 Notes increasing fatigue, some nausea, chills. Had normal BM this evening. Does recall some vague epigastric pain initially thus he had taken tums without improvement. No chemical exposures nor heavy lifting. Denies trauma. No fevers, vomiting, chest pain, sob, syncope, headache, neck pain, rashes, bleeding, bruising, leg swelling, calf pain, nor other symptoms. No previous abdominal issues. Nothing makes pain better, movement makes worse. I ( Clint Murrieta mD ) got a call for consult acute appendicitis, I reviewed pt's H/P, labs, CT with pt and hiswife, pt is still have RLQ pain, ROS: See above HPI for pertinent positives & negatives. A total of 10 systems reviewed and were otherwise negative. Principal Diagnosis Acute appendicitis Discharge Exam Constitutional WD/WN, vitals as above + obese Respiratory normal respiratory effort; no respiratory distress and no labored breathing Gastrointestinal (Abdomen) Inspection/Auscultation: abdomen normal to inspection and + abdominal surgical incision (covered with dressings, dry/intact); abdomen not distended Percussion/Palpation: abdomen soft; no guarding and abdomen not rigid Skin no rashes, warm and dry Psychiatric A+Ox3, euthymic affect Discharge Data Allergies Allergy/AdvReac Type Severity Reaction Status Date / Time codeine Allergy Unknown Verified 06/06/20 00:02 Consultations 06/06/20 01:41 ED Decision to Admit Stat Procedures Performed Operation Date: 06/06/20 03:30 Actual Procedures p Laparoscopic Appendectomy - Clint Murrieta MD Ordered Studies 06/06/20 00:02 CT abd pelvis IV con only Urgent Hospital Course (1) Acute appendicitis: Patient was taken to operating room for laparoscopic appendectomy by Dr. Murrieta. Patient found to have acute appendicitis with marked inflammation and edema but no abscess/perforation. Patient tolerated procedure well and transferred to recovery the to medical/surgical floor for postop care. He was evaluated 6 hours post op and was having minimal pain just soreness at incisions. No n/v. Tolerated clear liquids. Had not urinated yet. HE was advised to ambulate and clear liquids were continued for lunch. White count slightly increased to 19K so IV Cefoxitin was continued. POD # 1 , vitals stable, afebrile, good urine output, minimal pain. Leukocytosis resolved. Patient was discharged home on POD # 1 in stable condition. Total Time Total Time Spent Total Time Spent (In Minutes): 20 Total Time Includes: Examination of the Patient, Discharge Planning and Medication Reconciliation Discharge Plan Discharge Items Patient Disposition: Home - Self-Care Reason For Visit: ACUTE APPENDICITIS Discharge Diagnosis: Acute appendicitis Activity: Per Instructions section Non-emergency contact: Surgeon Call non-emergency contact if: you have any medication questions, your pain is not controlled, your pain is worsening, your pain is concerning for you, you have a fever, your temperature is above 101, your wound has increased redness, your wound has increased drainage and your wound pain has increased Follow-up/Referrals: Sonya Washington PA-C [Physician Strip Polisher] - (Follow-up in 2 weeks) PCP,NO [Primary Care Provider] - Diet: Regular Addtl Attending Provider Instructions: Post-Surgical ~Discharge Instructions Activity Recommendations: - lifting limitation: (20 pounds for 4 weeks), - exercise/sex/sports limit: (nonstrenuous for 2 weeks), - driving or machine use limit: (none for 1 week or until pain free), - Shower/bathe limit: (june shower beginning Friday) Diet: - Resume previous diet SPECIAL CARE INSTRUCTIONS: - May shower Friday. Wash hair and sponge bath in meantime. Friday you can remove outer dressings and shower. Let water run over area and pat dry. - Leave steri strips on for one week and then remove. - Call the surgeon's office with any questions or concerns - - (ex. temperature higher than 101 degrees F, excessive bleeding or pain). MEDICATIONS: - Resume previous medications unless instructed otherwise by your surgeon. - May take extra strength Tylenol or Ibuprofen as needed for mild pain - 650 mg Tylenol every 6 hours as needed - Ibuprofen 600 mg every 6 hours as needed (take with food) FOLLOW UP VISIT: - If not already scheduled, please call the office to schedule a two week follow-up appointment. Office number Pending Studies at Discharge: Yes Stand-Alone Forms: My [facility], Work/School Release (Inpt), Smoking Cessation Medications and DC Order Prescriptions: No Action No Known Home Medications RF: 0 Discharge Orders: Discharge Order (Routine); Ordered 06/07/20 Ordered By: Sonya Self/Other Patient Handouts: Appendectomy, Surgery for Appendicitis Admission Data Admit Date/Time: 06/06/20 05:03 Attending Provider: Clint Murrieta Admit Provider: Clint Murrieta Primary Care Provider: PCP,NO Other Providers: Clint Murrieta Other Interventions: Discharge Summary Assessment (RN) Last Done: 06/07/20 07:42
[2020-06-07] MEDS: LACTATED RINGER'S 1,000 ML IV SCH (08:16)
== END 2020-06-07 09:59 | disposition home or self-care (01) | DRG 343 ==
LOC: ED 23:38 → OR 06-06 03:32 → 3N 06-06 05:03